=== PATIENT | female | born 1985 | race Caucasian/White ===

== ENCOUNTER → 2016-08-29 | Outpatient (CLI) | payer OTHER ==
[2016-08-29 10:08] LABS: MEAN CORPUSCULAR HEMOGLOBIN 30.8 pg (27.0-33.0); MEAN CORPUSCULAR HGB CONC 33.4 g/dl (32.0-36.5); MEAN CORPUSCULAR VOLUME 92.5 fl (80.0-96.0); RED CELL DISTRIBUTION WIDTH 12.3 % (11.5-14.5); WHITE BLOOD COUNT 6.5 K/mm3 (4.0-10.0)
[2016-08-29 10:21] LABS: ALBUMIN 4.1 GM/DL (3.2-5.2); ALBUMIN/GLOBULIN RATIO 1.32 (1.00-1.93); ALKALINE PHOSPHATASE 62 U/L (45-117); ALT/SGPT 10 U/L (12-78); ANION GAP 8 MEQ/L (8-16); AST/SGOT 12 U/L (15-37); BILIRUBIN,TOTAL 0.5 MG/DL (0.2-1.0); BLOOD UREA NITROGEN 12 MG/DL (7-18); CALCIUM LEVEL 8.7 MG/DL (8.5-10.1); CARBON DIOXIDE LEVEL 27 MEQ/L (21-32); CHLORIDE LEVEL 109 MEQ/L (98-107); CREATININE FOR GFR 0.79 MG/DL (0.55-1.02); GLOMERULAR FILTRATION RATE > 60.0 (>60); GLUCOSE, FASTING 81 MG/DL (70-105); HCG, SERUM QUANTITATIVE < 1.0 MIU/ML; SODIUM LEVEL 144 MEQ/L (136-145); TOTAL PROTEIN 7.2 GM/DL (6.4-8.2)
== END ==
LOC: M LAB 09:31
PROVIDERS: ATTEND Obstetrics & Gynecology Reproductive Endocrinology
DX: N97.9 Female infertility, unspecified (principal)

== ENCOUNTER → 2016-10-04 | Outpatient (CLI) | payer OTHER ==
[2016-10-04 10:52] LABS: PROGESTERONE 45.2 NG/ML
[2016-10-04 10:53] LABS: ESTRADIOL 66.5 PG/ML
== END ==
LOC: M LAB 08:46
PROVIDERS: ATTEND Obstetrics & Gynecology Reproductive Endocrinology
DX: N97.9 Female infertility, unspecified (principal)

== ENCOUNTER → 2016-10-11 | Outpatient (CLI) | payer OTHER ==
[2016-10-11 09:29] LABS: HCG, SERUM QUANTITATIVE < 1.0 MIU/ML
[2016-10-11 09:38] LABS: PROGESTERONE 12.4 NG/ML
== END ==
LOC: M LAB 08:28
PROVIDERS: ATTEND Obstetrics & Gynecology Reproductive Endocrinology
DX: N97.9 Female infertility, unspecified (principal)

== ENCOUNTER → 2016-10-31 | Outpatient (CLI) | payer OTHER ==
[2016-10-31 10:16] LABS: ESTRADIOL 46.7 PG/ML; PROGESTERONE 27.7 NG/ML
== END ==
LOC: M LAB 07:45
PROVIDERS: ATTEND Obstetrics & Gynecology Reproductive Endocrinology
DX: Z31.49 Encounter for other procreative investigation and testing (principal)

== ENCOUNTER → 2016-11-15 | Outpatient (CLI) | payer OTHER ==
[2016-11-15 08:22] LABS: HCG, SERUM QUANTITATIVE < 1.0 MIU/ML
[2016-11-15 08:41] LABS: PROGESTERONE 1.3 NG/ML
== END ==
LOC: M LAB 07:10
PROVIDERS: ATTEND Obstetrics & Gynecology Reproductive Endocrinology
DX: Z32.00 Encounter for pregnancy test, result unknown (principal)

== ENCOUNTER → 2017-01-04 | Outpatient (CLI) | payer OTHER ==
[2017-01-04 10:33] LABS: ESTRADIOL 100.1 PG/ML; PROGESTERONE 55.7 NG/ML
== END ==
LOC: M LAB 07:57
PROVIDERS: ATTEND Obstetrics & Gynecology Reproductive Endocrinology
DX: Z31.49 Encounter for other procreative investigation and testing (principal)

== ENCOUNTER → 2017-01-13 | Outpatient (CLI) | payer OTHER ==
[2017-01-13 10:22] LABS: PROGESTERONE 75.9 NG/ML
== END ==
LOC: M LAB 08:39
PROVIDERS: ATTEND Obstetrics & Gynecology Reproductive Endocrinology
DX: Z32.00 Encounter for pregnancy test, result unknown (principal)

== ENCOUNTER → 2017-01-16 | Outpatient (CLI) | payer OTHER ==
[2017-01-16 10:07] LABS: ESTRADIOL 742.8 PG/ML
[2017-01-16 10:33] LABS: PROGESTERONE 66.7 NG/ML
== END ==
LOC: M LAB 08:37
PROVIDERS: ATTEND Obstetrics & Gynecology Reproductive Endocrinology
DX: Z32.01 Encounter for pregnancy test, result positive (principal)

== ENCOUNTER → 2017-01-23 | Outpatient (CLI) | payer OTHER ==
[2017-01-23 10:32] LABS: ESTRADIOL 432.6 PG/ML; PROGESTERONE 46.8 NG/ML
--- NOTE | 2017-01-23 11:24 | REP ---
FIRST TRIMESTER ULTRASOUND: Real-time sonographic evaluation of the gravid uterus performed utilizing transabdominal and endovaginal technique. The uterus measures 9.7 x 5.1 x 5.2 cm. There is a gestational sac in the endometrial canal with a mean sac diameter of 9 mm, corresponding to an estimated gestational age of 5 weeks 5 days. A yolk sac is seen within this gestational sac. No pole was seen. Right ovary measures 5.1 x 4.2 x 5.6 cm and left ovary 3.8 x 2.4 x 3.1 cm. Blood flow is seen in each ovary with duplex Doppler evaluation, with no torsion, RI right ovary 0.55 and left ovary 0.39. Complex cystic structure in the right ovary probably represents a hemorrhagic corpus luteum, 3.1 x 1.6 x 2.6 cm. There is mild free fluid in the pelvis. IMPRESSION: Intrauterine gestational sac contains a yolk sac but no pole. This likely represents an early intrauterine gestation, however, recommend followup ultrasound in 7 to 10 days to document viability. Signed by Alberto Meza MD 01/24/2017 08:38 A
== END ==
LOC: M LAB 10:05
PROVIDERS: ATTEND Obstetrics & Gynecology Reproductive Endocrinology
DX: Z32.01 Encounter for pregnancy test, result positive (principal)

== ENCOUNTER → 2017-01-30 | Outpatient (CLI) | payer OTHER ==
[2017-01-30 11:11] LABS: ESTRADIOL 857.9 PG/ML; PROGESTERONE 54.1 NG/ML
--- NOTE | 2017-01-30 12:06 | REP ---
FIRST TRIMESTER ULTRASOUND: Real-time sonographic evaluation of the gravid uterus is performed utilizing transabdominal and endovaginal technique. There is an intrauterine gestational sac, which contains a living intrauterine gestation with estimated gestational age 6 weeks 3 days based on a crown-rump length of 6 mm. EDC 09/22/2017. heart rate is 126 beats per minute. Another adjacent echogenic structure is seen, possibly representing a second pole with a length of 5 mm. No heart rate is detected within that structure. There is no subchorionic hemorrhage. Cystic structure of the right ovary probably represents a corpus luteum measuring 1.7 cm in diameter. There is mild free fluid in the right adnexal region. Blood flow is seen in each ovary with duplex Doppler evaluation, with no torsion. Recommend followup ultrasound in 7-10 days to ascertain the possible presence of a second viable fetus within the intrauterine gestational sac. Signed by Alberto Meza MD 01/30/2017 12:53 P
== END ==
LOC: M LAB 09:30
PROVIDERS: ATTEND Obstetrics & Gynecology Reproductive Endocrinology
DX: Z32.01 Encounter for pregnancy test, result positive (principal)